=== PATIENT | female | born 1930 | race Hispanic/Latino ===

== ENCOUNTER 2020-10-07 08:48 | Emergency (ER) | payer MEDICARE ==
[~2020-10-07] VITALS: Ht 147.3 cm; Wt 62.6 kg
[2020-10-07 09:25] LABS: BASOPHILS % 0.6 % (0.0-1.0); EOSINOPHILS # (AUTO) 0.3 (0.0-0.4); EOSINOPHILS % 6.3 % (0.0-6.0); HEMATOCRIT 28.3 % (34.2-44.1); HEMOGLOBIN 9.3 g/dL (12.0-16.0); LYMPHOCYTES # (AUTO) 1.8 (1.0-3.2); MEAN CORPUSCULAR HEMOGLOBIN 30.7 pg (28-32); MEAN CORPUSCULAR HGB CONC 32.9 g/dL (31-35); MEAN CORPUSCULAR VOLUME 93.4 fL (81-99); MONOCYTES # (AUTO) 0.5 (0.2-0.8); MONOCYTES % 9.1 % (4.4-11.3); NEUTROPHILS # (AUTO) 2.4 (2.1-6.9); NEUTROPHILS % 47.8 % (38.7-80.0); PLATELET COUNT 217 x10e3/uL (140-360); RED BLOOD COUNT 3.03 x10e6/uL (3.6-5.1); RED CELL DISTRIBUTION WIDTH 13.2 % (11.7-14.4)
[2020-10-07] MEDS ORDERED: RENAGEL800 MG PO (09:31)
[2020-10-07] MEDS ORDERED: NEXIUM40 MG PO (09:31)
[2020-10-07] MEDS ORDERED: ROSUVASTATIN CAL5 MG (09:31)
[2020-10-07] MEDS ORDERED: METOPROLOL SUCC25 MG (09:31)
[2020-10-07] MEDS ORDERED: LOPERAMIDE2 MG PO (09:31)
[2020-10-07] MEDS ORDERED: MELOXICAM7.5 MG PO (09:31)
[2020-10-07] MEDS ORDERED: JANUVIA100 MG PO (09:31)
[2020-10-07] MEDS ORDERED: LEVOTHYROXINE100 MC1 IV (09:31)
[2020-10-07] MEDS ORDERED: LASIX20 MG PO (09:31)
[2020-10-07] MEDS ORDERED: ATIVAN2 MG PO (09:31)
[2020-10-07 10:04] LABS: ALANINE AMINOTRANSFERASE 7 IU/L (0-55); ALBUMIN 3.9 g/dL (3.5-5.0); ALBUMIN/GLOBULIN RATIO 1.6 (0.8-2.0); ALKALINE PHOSPHATASE 99 IU/L (40-150); ANION GAP 13.3 mmol/L (8-16); BLOOD UREA NITROGEN 20 mg/dL (7-26); BUN/CREATININE RATIO 24 (6-25); CALCIUM 7.9 mg/dL (8.4-10.2); CARBON DIOXIDE 22 mmol/L (22-29); CHLORIDE 102 mmol/L (98-107); CREATINE KINASE 68 IU/L (29-168); CREATININE, SERUM 0.85 mg/dL (0.57-1.11); EST GLOMERULAR FILTRATION RATE > 60 ML/MIN (60-); GLUCOSE 100 mg/dL (74-118); POTASSIUM 4.3 mmol/L (3.5-5.1); SODIUM 133 mmol/L (136-145)
[2020-10-07] MEDS ORDERED: SODIUM CHLORIDE 0.9% 50ML 50 ML ONE (10:23)
[2020-10-07] MEDS ORDERED: IOPAMIDOL 370 MG/ML 200 ML INFUS..BTL INJ ONE (10:24)
[2020-10-07] MEDS ORDERED: IMODIUM2 MG PO (12:12)
== END 2020-10-07 10:26 | disposition home or self-care (01) ==
LOC: ER 08:53
DX: N95.0 Postmenopausal bleeding (principal); I10 Essential (primary) hypertension; E11.9 Type 2 diabetes mellitus without complications; E78.5 Hyperlipidemia, unspecified; N18.9 Chronic kidney disease, unspecified; Z95.1 Presence of aortocoronary bypass graft; Z85.850 Personal history of malignant neoplasm of thyroid
CPT/HCPCS: 36415; 74177; 80053; 82550; 82553; 84484; 85025; 86850; 86900; 93005; 99284; Q9967